=== PATIENT | female | born 1955 | race Caucasian/White ===

== ENCOUNTER 2020-05-15 09:37 | Outpatient (CLI) | payer MEDICARE, OTHER, SELFPAY ==
--- NOTE | 2020-05-15 09:45 | EST_ITS ---
Patient Info Name: Tamy Lockhart Age: 64 years : 1955 Gender: Female Ht: 62 in Wt: 120 lbs BSA: 1.55 m2 Exam Date: 05/15/2020 9:55 AM Exam Location: [facility] Stress Patient Status: Outpatient Admit Date: 05/15/2020 Staff Ordering Physician: Marito Johnson DO Attending Provider: DAVID CONKLIN DO Exercise Technologist: Caprice Pratt RDCS Exercise Physician: David Conklin DO Exam Type: CA stress test treadmill Study Info A treadmill exercise stress test was performed. Summary 1. 1. Negative Sami exercise stress test for ischemic ST changes by ECG criteria. 2. 2. Good functional capacity, achieving 8.9 METs of workload. 3. 3. Baseline hypertension. 4. 4. Appropriate HR response to exercise. 5. 5. Appropriate HR recovery at 1 minute post exercise. 6. 6. No imaging with stress testing. 7. 7. Patient informed of the above results. Protocol: Sami Stress ECG Details Stage: REST Duration (min): 6 min : 23 sec Speed (mph): 0.0 Grade (%): 0 HR (bpm): 94 SBP (mmHg): 155 DBP (mmHg): 81 METS: --- Stage: REST Duration (min): 10 min : 56 sec Speed (mph): 0.0 Grade (%): 0 HR (bpm): 103 SBP (mmHg): 155 DBP (mmHg): 81 METS: --- Stage: STAGE 1 Duration (min): 1 min : 0 sec Speed (mph): 1.7 Grade (%): 10 HR (bpm): 126 SBP (mmHg): 155 DBP (mmHg): 81 METS: --- Stage: STAGE 1 Duration (min): 2 min : 0 sec Speed (mph): 1.7 Grade (%): 10 HR (bpm): 127 SBP (mmHg): 155 DBP (mmHg): 81 METS: --- Stage: STAGE 1 Duration (min): 3 min : 0 sec Speed (mph): 1.7 Grade (%): 10 HR (bpm): 131 SBP (mmHg): 184 DBP (mmHg): 85 METS: --- Stage: STAGE 2 Duration (min): 1 min : 0 sec Speed (mph): 2.5 Grade (%): 12 HR (bpm): 144 SBP (mmHg): 184 DBP (mmHg): 85 METS: --- Stage: STAGE 2 Duration (min): 2 min : 0 sec Speed (mph): 2.5 Grade (%): 12 HR (bpm): 142 SBP (mmHg): 186 DBP (mmHg): 83 METS: --- Stage: STAGE 2 Duration (min): 3 min : 0 sec Speed (mph): 2.5 Grade (%): 12 HR (bpm): 148 SBP (mmHg): 186 DBP (mmHg): 83 METS: --- Stage: STAGE 3 Duration (min): 1 min : 0 sec Speed (mph): 3.4 Grade (%): 14 HR (bpm): 155 SBP (mmHg): 182 DBP (mmHg): 87 METS: --- Stage: STAGE 3 Duration (min): 1 min : 0 sec Speed (mph): 3.4 Grade (%): 14 HR (bpm): 155 SBP (mmHg): 182 DBP (mmHg): 87 METS: --- Stage: RECOVERY Duration (min): 0 min : 59 sec Speed (mph): 0.0 Grade (%): 0 HR (bpm): 138 SBP (mmHg): 184 DBP (mmHg): 77 METS: --- Stage: RECOVERY Duration (min): 1 min : 59 sec Speed (mph): 0.0 Grade (%): 0 HR (bpm): 125 SBP (mmHg): 184 DBP (mmHg): 77 METS: --- Stage: RECOVERY Duration (min): 2 min : 59 sec Speed (mph): 0.0 Grade
[2020-05-15 10:52] LABS: Basophils Percent Auto 0.5 % (0.2-1.2); Eosinophils Percent Auto 0.5 % (0-4.4); Hematocrit 42.9 % (37.0-47.0); Hemoglobin 14.3 g/dL (12.0-15.0); Immature Granulocyte Absolute 0.02 K/mm3 (0.00-0.031); Immature Granulocyte Percent A 0.3 % (0-0.5); Lymphocytes Absolute Auto 1.54 K/mm3 (0.9-3.2); Lymphocytes Percent Auto 23.5 % (18.3-44.2); Mean Corpuscular HGB Conc 33.3 g/dl (32-36); Mean Corpuscular Hemoglobin 29.9 pg (26-34); Mean Corpuscular Volume 89.6 fl (80-100); Mean Platelet Volume 10.7 fl (7.4-10.4); Monocytes Absolute Auto 0.4 K/mm3 (0.1-0.6); Monocytes Percent Auto 6.4 % (2.6-8.5); Neutrophils Absolute Auto 4.5 K/mm3 (1.3-6.7); Neutrophils Percent Auto 68.8 % (45.5-73.1); Platelet Count Result 254 k/mm3 (150-375); Red Blood Count 4.79 M/mm3 (4.2-5.4); White Blood Count 6.5 K/mm3 (4.5-10.0)
[2020-05-15 11:14] LABS: Alanine Aminotransferase 25 U/L (4-35); Albumin Level 4.6 g/dL (3.5-5.1); Alkaline Phosphatase 153 U/L (38-126); Anion Gap 9 mmol/L (8-16); Aspartate Amino Transferase 35 U/L (14-36); Bilirubin,Total 0.6 mg/dL (0.2-1.3); Blood Urea Nitrogen 12 mg/dL (7-17); Calcium 9.3 mg/dL (8.4-10.2); Carbon Dioxide 27 mmol/L (22-30); Chloride 102 mmol/L (98-107); Estimated Glomerular Filt Rate > 60; Glucose 125 mg/dL (65-105); Potassium 4.2 mmol/L (3.4-5.0); Sodium 138 mmol/L (137-145)
== END 2020-05-15 09:38 | disposition home or self-care (01) ==
PROVIDERS: PCP Internal Medicine; Visit Provider Internal Medicine
DX: R53.83 Other fatigue (principal); R07.89 Other chest pain
CPT/HCPCS: 36415; 80053; 84443; 85025; 93017

== ENCOUNTER → 2020-12-24 08:43 | Outpatient (CLI) | payer MEDICARE, OTHER, SELFPAY ==
--- NOTE | ~2020-12-24 | MR_ITS ---
EXAMINATION: MRA brain wo con DATE: 12/24/2020 09:42 INDICATION: Right-sided headache. Dizziness and giddiness. TECHNIQUE: Magnetic resonance angiography (MRA) of the brain was performed without intravenous contra st with T1-weighted SPGR by the 3D [id number] technique. Maximum intensity projection 3D-reconstr uctions were obtained. COMPARISON: None. FINDINGS: Left vertebral artery is dominant. There is no significant stenosis of basilar artery or the posterio r cerebral arteries. Right P1 posterior cerebral artery segment is small, a normal variant. The poste rior communicating arteries are normal. There is no significant stenosis of the intracranial internal carotid arteries or anterior or middle cerebral arteries. Anterior communicating artery is normal. T here is no aneurysm. IMPRESSION: 1. Normal MRA. Reviewed, dictated and finalized at location A. IMPRESSION: 1. Normal MRA.
--- NOTE | ~2020-12-24 | MR_ITS ---
EXAMINATION: MR brain/brain stem wo/w con DATE: 12/24/2020 09:45 INDICATION: Primary exertional headache. TECHNIQUE: Magnetic resonance imaging (MRI) of the brain and brainstem was performed without and with 10 mL MultiHance intravenous contrast. Sequences included sagittal and axial T1-weighted FSE, axial diffusion-weighted FS EPI, axial T2*-weighted GRE, axial T2-weighted FLAIR Propeller, and axial T2-we ighted Propeller. Postcontrast sequences included axial and coronal T1-weighted FSE. Apparent diffusi on coefficient (ADC) maps were created. COMPARISON: None. FINDINGS: There are scattered areas of nonspecific increased T2-weighted signal intensity in the cere bral white matter, which is within normal limits for the patient's age. There is no intracranial hemo rrhage, acute infarction, or abnormal intracranial mass lesion. The ventricles are normal in size. Th e paranasal sinuses are clear. The orbits are normal. The mastoid air cells are normal. IMPRESSION: 1. Normal brain. Reviewed, dictated and finalized at location A. IMPRESSION: 1. Normal brain.
[2020-12-24 09:18] LABS: Estimated Glomerular Filt Rate > 60
== END ==
PROVIDERS: PCP Internal Medicine; Visit Provider Internal Medicine
DX: G44.84 Primary exertional headache (principal); R42 Dizziness and giddiness
CPT/HCPCS: 70544; 70553; A9577

== ENCOUNTER 2021-06-03 08:46 | Emergency (ER) | payer MEDICARE, OTHER, SELFPAY ==
[2021-06-03] VITALS (22 sets, daily range): BP systolic 104–156; BP diastolic 67–75; PULSE 71–104; RESP 11–22; TEMP 36.3; O2SAT 96–100
--- NOTE | ~2021-06-03 | XR_ITS ---
EXAMINATION: XR chest 2V 06/03/2021 09:07 INDICATION: Left sided arm and chest PROCEDURE: 2 view chest COMPARISON: 02/14/2014 FINDINGS: The lungs are clear. The cardiomediastinal silhouette is within normal limits. There are no pleural effusions. There is no pneumothorax suspected. The lungs are hyperinflated which is cons istent with, but not diagnostic of chronic obstructive pulmonary disease. IMPRESSION: 1: NO ACUTE CARDIOPULMONARY DISEASE. Reviewed, dictated and finalized at location A.
--- NOTE | ~2021-06-03 | CT_ITS ---
EXAMINATION: CTA chest PE protocol DATE: 06/03/2021 11:18 INDICATION: Left chest pain. TECHNIQUE: Computed tomography angiography (CTA) of the chest was performed with 100 mL Omnipaque-350 intravenous contrast timed to evaluate the pulmonary arteries. Coronal maximum intensity projection 3D-reconstructions were created by the technologist. Automated exposure control and iterative reconst ruction technique were employed. The dose-length product was 172.07 mGy-cm. COMPARISON: Chest CT 02/14/2014 FINDINGS: There is mild scarring at the lung apices. There is minimal atelectasis bilaterally. No ple ural effusion. The heart size is normal. No pericardial effusion. There are cysts in the liver measur ing up to 13 mm. There is no pulmonary embolus. Thoracic aorta is normal in caliber. There is mild th oracic spondylosis. IMPRESSION: 1. No pulmonary embolus. Reviewed, dictated and finalized at location A. IMPRESSION: 1. No pulmonary embolus.
--- NOTE | 2021-06-03 08:56 | ECG_ITS ---
Measurements Intervals [place] Rate: 94 P: 66 ME: 144 QRS: 66 QRSD: 87 T: 64 QT: 356 QTc: 447 Interpretive Statements SINUS RHYTHM WITH SINUS ARRHYTHMIA BORDERLINE ST ABNORMALITY- INF/LAT LEADS BASELINE WANDER- II, III BORDERLINE ECG Electronically Signed On 06-03-2021 9:20:51 CDT by David Hatfield D.O.
--- NOTE | 2021-06-03 09:00 | PC.NURSE ---
Pt to xray.
[2021-06-03] MEDS: ASPIRIN 81 MG CHEWABLE TABLET 324 MG PO (09:20)
[2021-06-03 09:21] LABS: Anion Gap 8 mmol/L (8-16); Blood Urea Nitrogen 9 mg/dL (7-17); Calcium 9.5 mg/dL (8.4-10.2); Carbon Dioxide 27 mmol/L (22-30); Chloride 104 mmol/L (98-107); Estimated CRCL calculation 62 ml/min; Estimated Glomerular Filt Rate > 60; Glucose 124 mg/dL (65-110); Potassium 3.8 mmol/L (3.4-5.0); Sodium 139 mmol/L (137-145)
[2021-06-03 09:23] LABS: INR 0.8; Prothrombin Time 11.5 Seconds (11.1-14.7)
[2021-06-03 09:24] LABS: Partial Thromboplastin Time 21.8 SECONDS (22.3-36.8)
[2021-06-03 09:25] LABS: Basophils Percent Auto 0.4 % (0.2-1.2); Eosinophils Absolute Auto 0.2 K/mm3 (0-0.3); Eosinophils Percent Auto 2.9 % (0-4.4); Hematocrit 43.7 % (37.0-47.0); Hemoglobin 14.7 g/dL (12.0-15.0); Immature Granulocyte Absolute 0.01 K/mm3 (0.00-0.031); Immature Granulocyte Percent A 0.1 % (0-0.5); Mean Corpuscular HGB Conc 33.6 g/dl (32-36); Mean Corpuscular Hemoglobin 33.1 pg (26-34); Mean Corpuscular Volume 98.4 fl (80-100); Mean Platelet Volume 11.3 fl (7.4-10.4); Monocytes Absolute Auto 0.7 K/mm3 (0.1-0.6); Neutrophils Absolute Auto 2.6 K/mm3 (1.3-6.7); Neutrophils Percent Auto 36.6 % (45.5-73.1); Platelet Count Result 240 k/mm3 (150-375); Red Blood Count 4.44 M/mm3 (4.2-5.4); Red Cell Distribution Width 12.6 % (11.5-14.5)
[2021-06-03 09:32] LABS: Troponin I < 0.012 ng/mL (0.000-0.034)
[2021-06-03] MEDS: MORPHINE SULFATE (*CRX) 2 MG/ML INJ IV PUSH (09:48)
[2021-06-03] MEDS: KETOROLAC 30 MG/ML VIAL (*BKC) IV PUSH (10:42)
[2021-06-03 12:28] LABS: Troponin I < 0.012 ng/mL (0.000-0.034)
--- NOTE | 2021-06-03 12:56 | ED.CHESTPAIN ---
HPI - Chest Pain General Chief Complaint: Chest Pain Stated Complaint: cp Time Seen by Provider: 06/03/21 08:55 Source: patient Mode of arrival: ambulatory Limitations: no limitations History of Present Illness HPI narrative: 66-year-old with no major medical problems here with complaints of left-sided shoulder pain radiating into her arm and into her neck started this morning. Patient states that she gets periodically similar kind of pain usually takes deep breaths and it resolves however this morning it is been persistent. She also states that pain gets worse with deep inspiration. She denies any cough or trauma or lifting heavy objects in the recent past. No previous history of coronary artery disease. complaint: other (left arm and shoulder pain) Onset (ago): hour(s) (6) Timing of current episode: constant Prior episodes: No Onset: during rest Pain location: other (left shoulder) Pain radiation: left arm and neck Severity: moderate Quality: aching Relieving factors: nothing Exacerbating factors: nothing Treatment prior to arrival: none Related Data Home Medications Medication Instructions Recorded Confirmed biotin 5,000 mcg sublingual tablet 5,000 mcg SUBLINGUAL DAILY 07/28/20 12/15/20 multivitamin 1 tablet PO DAILY 07/28/20 12/15/20 Allergies Allergy/AdvReac Type Severity Reaction Status Date / Time doxycycline Allergy Mild Hives Verified 05/12/20 07:37 egg Allergy Unknown Flushing Verified 05/12/20 07:37 meperidine Allergy Unknown Urticaria Verified 05/12/20 07:37 cefaclor [From Ceclor] Allergy Unknown Verified 06/03/21 08:55 Review of Systems Review of Systems: All systems reviewed & are unremarkable except as noted in HPI and below Constitutional: Constitutional: Reports no additional constitutional complaints Eyes: Eyes: Reports no additional eye complaints ENT: Reports system reviewed and no additional complaints, except as documented Cardiovascular: Cardiovascular: Reports as per HPI Respiratory: Respiratory: Reports no additional respiratory complaints Gastrointestinal: Gastrointestinal: Reports no additional gastrointestinal complaints Musculoskeletal: Musculoskeletal: Reports as per HPI Integumentary/Breasts: Skin/Breast: Reports system reviewed and no additional complaints, except as docu Neurologic: Reports system reviewed and no additional complaints, except as documented PMFSH Past Medical History Medical History Cataract Glaucoma Mitral valve prolapse Family History Family History Father Family history of cardiovascular disease Mother Carcinoma of colon Social History Social History Smoking status: Never smoker Alcohol intake: current Exam Narrative: GENERAL: Well-appearing, thin, and in no acute distress. HEAD: Normocephalic, atraumatic. EYES: PERRLA and EOMI.. NECK: Supple. CHEST: Clear to auscultation. No respiratory distress. HEART: Regular rate and rhythm. No murmur heard. Normal peripheral pulses. ABDOMEN: Soft, nontender, nondistended, normal active bowel sounds. EXTREMITIES: Normal range of motion. No edema. Nontender on palpation SKIN: Warm, dry, no rash. NEURO: No focal deficits. Alert and oriented x3. PSYCH: Normal mood and affect. Course Course Emergency Course: Patient was given morphine 4 mg IV for pain which helped very minimally she still continues to have pain I have given her 30 mg of Toradol which eased the pain. I discussed her lab work, CTA findings. She feels much relief with Toradol her pain appears to be more musculoskeletal rather than cardiac or pulmonary at this time. Advised her to take pain medications as prescribed. Follow-up with her primary doctor. She does feel comfortable going home. Vital Signs Vital signs: Vital Signs Temperature 36.3 C L 06/03/21 08:51
== END 2021-06-03 13:30 | disposition home or self-care (01) ==
PROVIDERS: Emergency Provider Family Medicine; PCP Internal Medicine
DX: M25.512 Pain in left shoulder (principal); R07.89 Other chest pain; I34.1 Nonrheumatic mitral (valve) prolapse; H40.9 Unspecified glaucoma; H26.9 Unspecified cataract; R94.31 Abnormal electrocardiogram [ECG] [EKG]
CPT/HCPCS: 36415; 71046; 71275; 80048; 84484; 85025; 85610; 85730; 93005; 96374; 96375; 99284; A9270; J1885; J2270; Q9967

== ENCOUNTER → 2022-10-17 12:05 | Outpatient (CLI) | payer MEDICARE, OTHER, SELFPAY ==
--- NOTE | ~2022-10-17 | MM_ITS ---
EXAMINATION: MM screening caitlyn BI w riaz HISTORY: Screening mammogram TECHNIQUE: Craniocaudal and mediolateral oblique 3-D tomosynthesis images were obtained and synthetic 2-D images were generated. Bilateral rotated lateral CC views. CAD analysis was submitted and interp reted. COMPARISON: 02/11/2014 bilateral screening mammogram BREAST PARENCHYMAL COMPOSITION: There are scattered areas of fibroglandular density. FINDINGS: There is no evidence of suspicious mass, calcification, or architectural distortion to sugg est malignancy in either breast. There has been no suspicious interval change. IMPRESSION: 1. No mammographic evidence of malignancy. 2. Recommend routine screening mammography in one year. BI-RADS Category 1: Negative Reviewed, dictated and finalized at location A. SYSTEMS ENGINEER
--- NOTE | ~2022-10-17 | DEXA_ITS ---
Bone Density Report Name: PAUL DE LA CRUZ Age: 67 Sex: Female Ethnicity: White Date of : 1955 Indication: osteopenia; postmenopausal Referring Provider: Sintia Álvarez Study: Bone densitometry was performed. Exam Date: October 17, 2022 Accession number: [id number] Bone Density: Region BMD T-score Z-score Classification AP Spine (L1-L4) 0.836 -1.9 0.0 Osteopenia Femoral Neck (Left) 0.621 -2.1 -0.4 Osteopenia Total Hip (Left) 0.833 -0.9 0.5 Normal Femoral Neck (Right) 0.649 -1.8 -0.2 Osteopenia Total Hip (Right) 0.830 -0.9 0.4 Normal Total Hip Mean 0.832 -0.9 0.5 Normal World Health Organization criteria for BMD impression classify patients as: Normal (T-score at or above -1.0), Osteopenia (T-score between -1.0 and -2.5), or Osteoporosis (T-score at or below -2.5). 10-year Fracture Risk(1): Major Osteoporotic Fracture 11% Hip Fracture 1.9% Reported Risk Factors: [place] (), Neck BMD=0.621, BMI=22.3 (1) FRAX(R) Version 3.08. Fracture probability calculated for an untreated patient. Fracture probability may be lower if the patient has received treatment. Previous Exams: Region Exam Age BMD T-score BMD Change BMD Change Date g/cm2 vs Baseline vs Previous AP Spine(L1-L4) 10/17/2022 67 0.836 -1.9 -0.018 -0.018 02/11/2014 58 0.854 -1.8 Total Hip(Left) 10/17/2022 67 0.833 -0.9 0.028* 0.028* 02/11/2014 58 0.805 -1.1 Total Hip(Right) 10/17/2022 67 0.830 -0.9 -0.012 -0.012 02/11/2014 58 0.842 -0.8 *Denotes significance at 95% confidence level, LSC for AP Spine = 0.022 g/cm2, LSC for Total Hip = 0.027 g/cm2 Clinical Information Provided by Patient: Has used the following medications: Vitamin D, MTV Patient maximum height was 62.0 Menopause Age: 56 Drinks caffeinated beverages Onset of menses at age 13 Number of children 3 Impression: The patient has low bone mass, based on the Left Femoral Neck T-score. The patient has an estimated ten-year risk of hip fracture of 1.9% and an estimated ten-year risk of major fracture of 11%, based on the WHO FRAX algorithm. No significant bone loss was observed. Discussion: BONE DENSITY IS LOW AT ONE OR MORE SKELETAL SITES. This patient's lowest T-score is low at one or more skeletal sites. It meets the World Health Organization's (WHO) criteria for ?low bone mass? (T-score between -1.0 and -2.5). The wes
== END ==
PROVIDERS: PCP Clinical Nurse Specialist; Visit Provider Clinical Nurse Specialist
DX: Z12.31 Encounter for screening mammogram for malignant neoplasm of breast (principal); Z78.0 Asymptomatic menopausal state; M85.88 Other specified disorders of bone density and structure, other site; M85.852 Other specified disorders of bone density and structure, left thigh; M85.851 Other specified disorders of bone density and structure, right thigh
CPT/HCPCS: 77063; 77067; 77080

== ENCOUNTER 2023-09-28 14:02 | Outpatient (CLI) | payer MEDICARE, OTHER, SELFPAY ==
--- NOTE | ~2023-09-28 | XR_ITS ---
XR hip RT min 2V DATE: 09/28/2023 14:47 INDICATION: Right hip pain TECHNIQUE: AP and lateral views of right hip COMPARISON: None FINDINGS: The pubic symphysis and right sacroiliac joint are intact. No right hip fracture or disloca tion, avascular necrosis or bone destruction is detected. IMPRESSION: Negative right hip Reviewed, dictated and finalized at location L. ERCIAL DRIVER IMPRESSION: Negative right hip
== END 2023-09-28 14:03 ==
PROVIDERS: PCP Clinical Nurse Specialist; Visit Provider Clinical Nurse Specialist
DX: M25.551 Pain in right hip (principal)
CPT/HCPCS: 73502

== ENCOUNTER 2023-11-13 09:55 | Outpatient (CLI) | payer MEDICARE, OTHER, SELFPAY ==
--- NOTE | ~2023-11-13 | MM_ITS ---
EXAMINATION: MM screening caitlyn BI w riaz HISTORY: Screening mammogram TECHNIQUE: Craniocaudal and mediolateral oblique 3-D tomosynthesis images were obtained and synthetic 2-D images were generated. CAD analysis was submitted and interpreted. COMPARISON: October 17, 2022, February 11, 2014 bilateral screening mammogram examinations BREAST PARENCHYMAL COMPOSITION: There are scattered areas of fibroglandular density. FINDINGS: There is no evidence of suspicious mass, calcification, or architectural distortion to sugg est malignancy in either breast. There has been no suspicious interval change. IMPRESSION: 1. No mammographic evidence of malignancy. 2. Recommend routine screening mammography in one year. BI-RADS Category 1: Negative Reviewed, dictated and finalized at location A. MANAGER
== END 2023-11-13 09:56 ==
PROVIDERS: PCP Internal Medicine; Visit Provider Internal Medicine
DX: Z12.31 Encounter for screening mammogram for malignant neoplasm of breast (principal)
CPT/HCPCS: 77063; 77067

== ENCOUNTER 2023-11-29 12:31 | Outpatient (CLI) | payer MEDICARE, SELFPAY ==
--- NOTE | ~2023-11-29 | MR_ITS ---
MRI of the brain Clinical History: Amnesia Technique: Axial and sagittal T1-weighted images were acquired. These were followed by axial T2-weigh keith, diffusion weighted, gradient, and FLAIR images. Following intravenous administration of 10 cc Mu ltiHance gadolinium, T1-weighted fat-sat imaging was performed in the axial and coronal planes. Findings: No abnormal signal seen in the brain parenchyma. No acute infarct, internal hemorrhage, or mass lesion. Ventricles and subarachnoid spaces are unremarkable. Orbits are unremarkable. Right maxillary sinus d isease noted. Remaining paranasal sinuses and mastoid air cells are clear. Major intracranial flow vo ids are intact. Sagittal midline structures are intact. No abnormal postcontrast enhancement seen. IMPRESSION: Mild right maxillary sinus disease, otherwise unremarkable exam. Reviewed, dictated and finalized at [facility].
== END 2023-11-29 12:32 ==
LOC: MICIMG 12:32
PROVIDERS: PCP Clinical Nurse Specialist; Visit Provider Clinical Nurse Specialist
DX: R41.3 Other amnesia (principal); J32.0 Chronic maxillary sinusitis
CPT/HCPCS: 70553; A9577

== ENCOUNTER 2024-05-30 09:12 | Outpatient (CLI) | payer MEDICARE, SELFPAY ==
[2024-05-30 13:50] LABS: Anion Gap 3 mmol/L (4-12); Blood Urea Nitrogen 12 mg/dL (7-17); Calcium 9.1 mg/dL (8.4-10.2); Carbon Dioxide 35 mmol/L (22-30); Chloride 101 mmol/L (98-107); Estimated Glomerular Filt Rate > 60; Glucose 107 mg/dL (65-110); Potassium 4.3 mmol/L (3.4-5.0); Sodium 139 mmol/L (137-145)
== END 2024-05-30 09:13 | disposition home or self-care (01) ==
LOC: ANHGOSHLAB 09:14
PROVIDERS: PCP Clinical Nurse Specialist; Visit Provider Clinical Nurse Specialist
DX: I10 Essential (primary) hypertension (principal)
CPT/HCPCS: 36415; 80048

== ENCOUNTER 2025-03-24 11:15 | Emergency (ER) | payer MEDICARE, SELFPAY ==
--- OUTSIDE RECORDS SUMMARY | 2025-03-24 11:19 | XMS_ITS | Clinical Summary ---
Author Organization [facility] Address [address] [place] [id number] Care Team Providers Care Social Media Assistant Name Role Phone Marito Johnson DO Primary Care Provider +1- [phone] Allergies Active Allergy Reactions Criticality Noted Date Comments Doxycycline Meperidine Rash Reaction: Rash, Medications [id number] -Lmfolate-algal 27 mg iron-1.13 mg-581.92 mg capsule Take by mouth Active lisinopriL (PRINIVIL,ZESTR IL) 5 mg tablet 5 Active donepeziL (ARICEPT) 5 mg tabletIndicatio ns:Mild to Moderate Alzheimer's Type Dementia Take 1 tablet (5 mg total) by mouth daily Take this medication with food or within 30 minutes after a meal 30 tablet 5 Active Active Problems Problem Noted Date Diagnosed Date Chest pain 06/22/2021 Encounters Date Type Department Care Team Description 03/21/2025 Telephone [facility] [address] [facility] 6th [place] [address] [place] [address] Mary Lauren 03/18/2025 Results Follow-Up [address]th [place] [address] [place] [address] Cookie Valentine MD PET/CT Amyloid Brain 03/17/2025 1:08 PM CDT - 03/17/2025 11:59 PM CDT Hospital Encounter [facility]) [address] [place] [address] Discharge Disposition: Discharge to home or self care 03/17/2025 1:07 PM CDT - 03/17/2025 11:59 PM CDT Hospital Encounter [facility] ([facility]) [address] [place] [address] Other amnesia; Abnormal brain scan Discharge Disposition: Discharge to home or self care 02/05/2025 10:28 AM CDT - 02/05/2025 11:59 PM CDT Hospital Encounter [facility] ([facility]) [address] [place] [address] Discharge Disposition: Discharge to home or self care 02/05/2025 8:00 AM CDT Office Visit [facility] [address] [place] [address] [facility] 6th [place] [address] [place] [address] Cookie Valentine MD Abnormal brain scan (Primary Dx); Other amnesia 01/02/2025 Telephone [facility] Scheduling [address] [place] [address] Cookie Valentine MD Scheduling Appointments from Last 3 Months Surgical History Surgery Date Site/Laterality Comments TUBAL LIGATION tubal ligation OTHER SURGICAL HISTORY pylonidal cyst OTHER SURGICAL HISTORY neuroma CYST REMOVAL Medical History Medical History Date Comments Hx Other Medical abnl heartbeat; Comments: DWL 07/19/2016 - Hx Other Medical Headache, migra ine Chest pain Amnesia Liver cyst Ectopic Family History Medical History Relation Name Comments Memory loss Cousin Heart disease Father Cancer Mother Heart attack Mother Cancer Other 1 Family history of Cancer, unknown; Arthritis Other 2 Family history of Arthritis; Coronary artery disease Other 3 Fami ly history of Coronary artery disease; Hypertension Other 4 Family history of Hypertension; Relation Name Status Comments Cousin Alive Father (Age 74) Mother (Age 85) Other 1 Other 2 Other 3 Other 4 Social History Tobacco Use Types Packs/Day Years Used Date Smoking Tobacco: Never Smokeless Tobacco: Never Tobacco Cessation:Counseling Given: No Comments Unknown Sex and Gender Information Value Date Recorded Sex Assigned at Not on file 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 Gender Identity Not on file Sexual Orientation Not on file Obstetrics History Last Filed Vital Signs Vital Sign Reading Time Taken Comments Blood Pressure 150/75 02/05/2025 7:50 AM CDT Pulse 89 02/05/2025 7:50 AM CDT Temperature - - Respiratory Rate - - Oxygen Saturation 96% 06/22/2021 4:21 PM CDT Inhaled Oxygen Concentration - - Weight 44 kg (97 lb) 03/17/2025 2:49 PM CDT Height 154.9 cm (5' 1) 03/17/2025 2:49 PM CDT Body Mass Index 18.33 03/17/2025 2:49 PM CDT Plan of Treatment Health Maintenance Due Date Last Done Comments Breast Cancer Screening-Mammogram 1955 Colon Cancer Screening-Colonoscopy 1955 Depression Screening 1955 Fall Risk Assessment 1955 Hepatitis C Screening 1955 Osteoporosis Screening-Bone Density Scan 1955 DTaP/Tdap/Td Vaccine (1 - Tdap) 1966 Hepatitis B Screening 1973 Pneumococcal vaccine 65+ (1 of 1 - PCV) 2005 Zoster Vaccine (1 of 2) 2005 Well Visit 65+ 2020 Covid-19 Vaccine ( season) 05/12/202410/2020, 05/12/2021 Influenza Vaccine (#1) 2025 Procedures Procedure Name Priority Date/Time Associated Diagnosis Comments PET/CT AMYLOID BRAIN Schedule Routine, Read Routine (OP Routine) 03/17/2025 3:37 PM CDT Other amnesia Abnormal brain scan NEURO MR OUTSIDE REFERENCE Routine 02/05/2025 10:28 AM CDT from Last 3 Months Results * PET/CT Amyloid Brain (03/17/2025 3:37 PM CDT) Anatomical Region Laterality Modality Positron Emissio n Tomography (PET) 03/17/2025 3:53 PM CDT Impressions 03/17/2025 7:03 PM CDT 1. 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 2. Subcentimeter value: 60.06 General comments on amyloid-PET interpretation: A negative amyloid-PET study indicates sparse to no neuritic plaques and is inconsistent with Alzheimer disease at the time of the study. A negative study reduces the likelihood that the patient's cognitive impairment is due to Alzheimer disease. A positive amyloid-PET study indicates moderate to frequent neuritic plaques which is the amount present in patients with Alzheimer disease. However, a positive amyloid-PET study does not establish the diagnosis of Alzheimer disease. Moderate to frequent neuritic plaques can also be present in patients with other neurological conditions as well as in older people with normal cognition. Dictated by: Sim Fajardo MD The radiology attending physician has personally reviewed this study, and had reviewed and/or edited this written report and agrees with it. Electronically signed by: Vanessa Woodall M.D. Narrative 03/17/2025 7:03 PM CDT EXAMINATION: BRAIN AMYLOID-PET/CT IMAGING DATE OF STUDY: 03/17/2025 SCANNER: [employer] RADIOPHARMACEUTICAL: 11.56 mCi F-18 florbetapir i.v. HISTORY: A 69-year-old woman is undergoing evaluation for cognitive impairment, including short-term memory loss, and asking things repeatedly. TECHNIQUE: At 41 minutes after injection of tracer, non-contrast CT images of the head were obtained for attenuation correction and for fusion with emission PET images to allow for anatomical localization of PET findings. Standard emission PET imaging of the brain was then performed. The study was interpreted on the [facility] workstation. COMPARISON CT/MRI: MRI 11/29/2023 FINDINGS: There is a normal cortical-white matter contrast in the cerebellum. There is decreased cortical-white matter contrast involving both cerebral hemispheres, with cortical activity equally distributed in white matter involving the lateral temporal, posterior cingulate gyrus, precuneus, occipital, and superior parietal lobes. Centiloid value: 60.[address] findings: None. Procedure Note Vanessa Woodall MD - 03/17/2025 EXAMINATION: BRAIN AMYLOID-PET/CT IMAGING DATE OF STUDY: 03/17/2025 SCANNER: [email or web address] [facility] mCT RADIOPHARMACEUTICAL: 11.56 mCi F-18 florbetapir i.v. HISTORY: A 69-year-old woman is undergoing evaluation for cognitive impairment, including short-term memory loss, and asking things repeatedly. TECHNIQUE: At 41 minutes after injection of tracer, non-contrast CT images of the head were obtained for attenuation correction and for fusion with emission PET images to allow for anatomical localization of PET findings. Standard emission PET imaging of the brain was then performed. The study was interpreted on the [facility] workstation. COMPARISON CT/MRI: MRI 11/29/2023 FINDINGS: There is a normal cortical-white matter contrast in the cerebellum. There is decreased cortical-white matter contrast involving both cerebral hemispheres, with cortical activity equally distributed in white matter involving the lateral temporal, posterior cingulate gyrus, precuneus, occipital, and superior parietal lobes. Centiloid value: 60.[address] findings: None. IMPRESSION: 1. 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 2. Subcentimeter value: 60.06 General comments on amyloid-PET interpretation: A negative amyloid-PET study indicates sparse to no neuritic plaques and is inconsistent with Alzheimer disease at the time of the study. A negative study reduces the likelihood that the patient's cognitive impairment is due to Alzheimer disease. A positive amyloid-PET study indicates moderate to frequent neuritic plaques which is the amount present in patients with Alzheimer disease. However, a positive amyloid-PET study does not establish the diagnosis of Alzheimer disease. Moderate to frequent neuritic plaques can also be present in patients with other neurological conditions as well as in older people with normal cognition. Dictated by: Sim Fajardo MD The radiology attending physician has personally reviewed this study, and had reviewed and/or edited this written report and agrees with it. Electronically signed by: Vanessa Woodall M.D. Cookie Valentine MD IMG PET PROCEDURES Final Result * Neuro MR Outside Reference (02/05/2025 10:28 AM CDT) Impressions [facility] - 02/05/2025 10:28 AM CDT These images are for Reference purposes only and have not been reviewed by [facility]iology. There will be no report generated by a [facility] Radiologist. Narrative [facility] - 02/05/2025 10:28 AM CDT EXAMINATION: Images For Reference Purposes Only us Cookie Valentine MD IMG MRI PROCEDURES Final Result [facility] from Last 3 Months Insurance MEDICARE [facility] MEDICARE IBEW MEDICARE SUPP MEDICARE IBEW MEDICARE SUPP Care Teams Social Media Assistant Relationship Specialty Start Date End Date Marito Johnson DO PCP - General 02/04/17
--- OUTSIDE RECORDS SUMMARY | 2025-03-24 11:19 | XMS_ITS | Referral Summary ---
Author Organization [facility] [facility] [place] Address [address] [place] [phone] Care Team Providers Care Wrist Liner Name Role Phone Marito Johnson DO Primary Care Provider +1- [phone] Encounters Date Type Department Care Team Description 03/21/2025 Telephone [facility] [address] [facility] 6th [place] [address] [place] [address] Mary Lauren 03/18/2025 Results Follow-Up [facility] [address] [facility] 6th [place] [address] [place] [address] Cookie Valentine MD PET/CT Amyloid Brain 03/17/2025 1:08 PM CDT - 03/17/2025 11:59 PM CDT Hospital Encounter [facility] ([facility]) [address] [place] [phone] Discharge Disposition: Discharge to home or self care 03/17/2025 1:07 PM CDT - 03/17/2025 11:59 PM CDT Hospital Encounter [facility]) [address] [place] [address] Other amnesia; Abnormal brain scan Discharge Disposition: Discharge to home or self care 02/05/2025 10:28 AM CDT - 02/05/2025 11:59 PM CDT Hospital Encounter [facility]) [address] [place] [address] Discharge Disposition: Discharge to home or self care 02/05/2025 8:00 AM CDT Office Visit [facility] [address] [facility] 6th [place] [address] [place] [address] Cookie Valentine MD Abnormal brain scan (Primary Dx); Other amnesia 01/02/2025 Telephone [facility] Scheduling [address] [place] [address] Cookie Valentine MD Scheduling Appointments from Last 3 Months Allergies Active Allergy Reactions Criticality Noted Date Comments Doxycycline Meperidine Rash Reaction: Rash, Medications [id number] -Lmfolate-algal 27 mg iron-1.13 mg-581.92 mg capsule Take by mouth Active lisinopriL (PRINIVIL,ZESTR IL) 5 mg tablet Active donepeziL (ARICEPT) 5 mg tabletIndicatio ns:Mild to Moderate Alzheimer's Type Dementia Take 1 tablet (5 mg total) by mouth daily Take this medication with food or within 30 minutes after a meal 30 tablet 5 Active Active Problems Problem Noted Date Diagnosed Date Chest pain 06/22/2021 Social History Tobacco Use Types Packs/Day Years Used Date Smoking Tobacco: Never Smokeless Tobacco: Never Tobacco Cessation:Counseling Given: No Comments Unknown Sex and Gender Information Value Date Recorded Sex Assigned at Not on file 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 HISTORY: [...] performed. The study was interpreted on the [employer] workstation. COMPARISON CT/MRI: MRI 11/29/2023 FINDINGS: There [...] AMYLOID-PET/CT IMAGING DATE OF STUDY: 03/17/2025 SCANNER: [facility] RADIOPHARMACEUTICAL: 11.56 mCi F-18 florbetapir i.v. HISTORY: [...] performed. The study was interpreted on the [facility] workstation. COMPARISON CT/MRI: MRI 11/29/2023 FINDINGS: There [...] Outside Reference (02/05/2025 10:28 AM CDT) Impressions [facility] - 02/05/2025 10:28 AM CDT These images are for Reference purposes only and have not been reviewed by [facility]iology. There will be no report generated by a [facility] Radiologist. Narrative [facility] - 02/05/2025 10:28 AM CDT EXAMINATION: Images For Reference Purposes Only Cookie Valentine MD IMG MRI PROCEDURES Final Result [facility] from Last 3 Months Insurance MEDICARE COMMERCIAL GENERIC MEDICARE IBEW MEDICARE SUPP HEALTH AND [address] [id number] MEDICARE IBEW MEDICARE SUPP Care Teams Wrist Liner Relationship Specialty Start Date End Date Marito Johnson DO PCP - General 02/04/17
--- NOTE | 2025-03-24 11:21 | ED.FEMALEGU ---
HPI - Female Genitourinary General Chief complaint: Skin/Abscess/Foreign Body Stated complaint: uti Source: patient and RN notes reviewed Mode of arrival: ambulatory Limitations: no limitations History of Present Illness HPI Narrative: Patient is a 69-year-old female who presents to the [facility] with multiple complaints. Patient complains of dysuria and hematuria that she noted on Monday morning. Patient states she continued to burning with urination throughout the day and again this morning. She has noted a very small amount blood in her urine on Monday and then again this morning. She denies any pelvic or flank pain. Denies history of kidney stones. Denies recent fevers. Related Data Allergies Allergy/AdvReac Type Severity Reaction Status Date / Time doxycycline Allergy Mild Hives Verified 11/28/24 08:37 egg Allergy Unknown Flushing Verified 11/28/24 08:37 meperidine Allergy Unknown Urticaria Verified 11/28/24 08:37 cefaclor (From Ceclor) Allergy Unknown Verified 11/28/24 08:37 cortisone Allergy Severe Swelling Uncoded 11/28/24 08:37 fibromyacin Allergy Severe Hives Uncoded 11/28/24 08:37 Review of Systems Review of Systems: CONSTITUTIONAL: Denies fever, chills, or sweats. EYES: Denies visual changes, redness, or discharge. ENT: Denies otalgia and sore throat CARDIOVASCULAR: Denies chest pain, palpitations, or edema. RESPIRATORY: Denies cough or dyspnea. GASTROINTESTINAL: Denies abdominal pain, nausea, vomiting, or diarrhea. GENITOURINARY: Reports dysuria and hematuria. SKIN: Denies rash or itching. MUSCULOSKELETAL: Denies back pain, joint pain, or myalgia. NEUROLOGIC: Denies headache, numbness, or weakness. Pertinent positives per HPI. FOR[facility]LY [facility], [facility] Past Medical History Medical History Mitral valve prolapse Glaucoma Cataract Family History Family History Father Family history of cardiovascular disease Mother Carcinoma of colon Social History Social History Smoking status: Never smoker Alcohol intake: never Do You Feel Safe in your Home?: Yes Lack of Transportation: No Lack of Food: Never True Current Housing: I Have Housing Concerned About Future Housing: No Difficulty Paying Gas/Electric Bills: No Difficulty Paying for Meds: No Currently Unemployed: No Education: High School Diploma/GED Difficulty w/ Childcare or Family Care: No Comments At the time of my signature, I reviewed and agree with the nursing past medical, surgical, social, and family history. There is no relevant family history pertinent to the patient complaint. Exam Narrative: GENERAL: This is a well-nourished, well-developed patient, in no apparent distress. HEAD: normocephalic, atraumatic. EYES: Sclera clear/white. Vision is grossly intact. EARS: External ears normal. Hearing grossly intact. NOSE: External nose normal with no obvious nasal discharge, nares without redness, no rhinorrhea. THROAT: Mucous membranes moist, posterior pharynx clear. NECK: Neck supple, non-tender without lymphadenopathy, masses or thyromegaly. CARDIOVASCULAR: Regular rate and rhythm without murmurs, gallops, or rubs. RESPIRATORY: Clear to auscultation. Breath sounds equal bilaterally. No wheezes, rales, or rhonchi. GASTROINTESTINAL: Abdomen soft, non-tender, nondistended. Bowel sounds are active. No hepato-splenomegaly, or palpable masses. No guarding. SKIN: warm, intact with no suspicious lesions or rash, good texture and turgor. NEURO: awake, alert, and oriented to person, place and time. There were no obvious focal neurologic abnormalities. EXTREMITIES: No clubbing, cyanosis, or edema. No joint tenderness, effusion, or edema noted. BACK: Nontender without deformity or crepitance. No flank tenderness. Course Course Level of Care: Express Care Visit Vital Signs Vital signs: Vital Signs Temperature 97.6 F 03/24/25 11: Pulse Rate 92 03/24/25 11:25 Respiratory Rate 18 03/24/25 11:25 Blood Pressure 137/65 03/24/25 11: Pulse Oximetry 100 03/24/25 11:25 Oxygen Delivery Room Air 03/24/25 11: Temperature 97.6 F 03/24/25 11:25 Pulse Rate 92 03/24/25 11:25 Respiratory Rate 18 03/24/25 11:25 Blood Pressure 137/65 07/14/25 11:25 Pulse Oximetry 100 03/24/25 11:25 Oxygen Delivery Room Air 03/24/25 11:25 Reviewed MDM - Female Genitourinary MDM Narrative Medical decision making narrative: We will send a urine culture off to the lab; if the culture identifies an organism that the prescribed antibiotic will not treat, you will receive a phone call from an urgent care staff member and an appropriate antibiotic will be prescribed. -Your symptoms should begin to improve within a day of starting antibiotics. But you should finish all the antibiotic pills you get. Otherwise your infection might come back. -Also recommend: drink more fluid. It might help flush out germs, and it does no harm -Tylenol/ibuprofen as needed for pain -Follow-up with your primary care provider for urine recheck OR if your symptoms persist, change or worsen significantly before you can contact your personal physician then please, without delay, go to the emergency department for further evaluation. Differential Diagnosis Differential diagnosis: Likely urinary tract infection, vaginitis and cystitis Lab Data Attestation: I reviewed the patient's lab results. Critical Care Time Critical Care Time Critical Care Time: No Discharge Plan Discharge Clinical Impression: Acute cystitis with hematuria, Sting, wasp Patient Disposition: Home Condition: Stable Instructions: Antibiotic Form, Urinary Tract Infection in Women (ED) Additional Instructions: We will send a urine culture off to the lab; if the culture identifies an organism that the prescribed antibiotic will not treat, you will receive a phone call from an urgent care staff member and an appropriate antibiotic will be prescribed. -Your symptoms should begin to improve within a day of starting antibiotics. But you should finish all the antibiotic pills you get. Otherwise your infection might come back. -Also recommend: drink more fluid. It might help flush out germs, and it does no harm -Tylenol/ibuprofen as needed for pain -Follow-up with your primary care provider for urine recheck OR if your symptoms persist, change or worsen significantly before you can contact your personal physician then please, without delay, go to the emergency department for further evaluation. Patient Language: Kazakh Prescriptions: New nitrofurantoin monohyd/m-cryst 100 mg capsule 100 mg PO Q12H 7 Days Qty: 14 0RF Rx Instructions: must administer with a meal/food No Action lisinopril 2.5 mg tablet 2.5 mg PO DAILY Qty: 90 0RF Follow-up/Referrals: Marito Johnson DO [Primary Care Provider] - Time of Disposition: 11:39
[2025-03-24 11:25] VITALS: BP 137/65; PULSE 92; RESP 18; TEMP 36.4; O2SAT 100
[2025-03-24 11:39] LABS: EDUAAPPEAR Cloudy; EDUABILI Negative (Negative); EDUABLOOD 2+ (Negative); EDUACOLOR1 Tea Colored; EDUAGLUCOSE Negative (Negative); EDUAKETONE Negative (Negative); EDUALEUKO 1+ (Negative); EDUANITRATE Negative (Negative); EDUAPH 5.5; EDUAPROTEIN Trace (Negative); EDUASPGRAVITY 1.030; EDUAUROBILI 0.2
== END 2025-03-24 11:41 | disposition home or self-care (01) ==
PROVIDERS: Emergency Provider Nurse Practitioner; PCP Internal Medicine
DX: N30.01 Acute cystitis with hematuria (principal); T63.461A Toxic effect of venom of wasps, accidental (unintentional), initial encounter; I34.1 Nonrheumatic mitral (valve) prolapse; H40.9 Unspecified glaucoma
CPT/HCPCS: 81003; 87086; 99213; G0463

== ENCOUNTER 2025-04-04 12:09 | Emergency (ER) | payer MEDICARE, SELFPAY ==
--- OUTSIDE RECORDS SUMMARY | 2025-04-04 12:12 | XMS_ITS | Clinical Summary ---
Author Organization [address] Address [address] [place] [id number] Care Team Providers Care Plaster Foreman Name Role Phone Marito Johnson DO Primary Care Provider +1- [phone] Allergies Active Allergy Reactions Criticality Noted Date Comments Doxycycline Meperidine Rash Reaction: Rash, Medications [id number] -Lmfolate-algal 27 mg iron-1.13 mg-581.92 mg capsule [...] Encounters Date Type Department Care Team Description 03/26/2025 Telephone [facility] Scheduling [address] [place] [address] Marito Johnson DO 03/24/2025 Telephone [facility] [address] [facility] 6th [place] [address] [place] [address] Cookie Valentine MD 03/21/2025 Telephone [facility] [address] [facility] 6th [place] [address] [place] [id number] Mary Lauren 03/18/2025 Results Follow-Up [facility] [address] [facility] 6th [place] [address] [place] [address] Cookie Valentine MD PET/CT Amyloid Brain 03/17/2025 1:08 PM CDT - 03/17/2025 11:59 PM CDT Hospital Encounter [facility] ([facility]) [address] [place] [id number] Discharge Disposition: Discharge to home or self care 03/17/2025 1:07 PM CDT - 03/17/2025 11:59 PM CDT Hospital Encounter [facility] ([facility]) [address] [place] [phone] Other amnesia; Abnormal brain scan Discharge Disposition: Discharge to home or self care 02/05/2025 10:28 AM CDT - 02/05/2025 11:59 PM CDT Hospital Encounter [facility] ([facility]) [address] [place] [id number] Discharge Disposition: Discharge to home or self care 02/05/2025 8:00 AM CDT Office Visit [facility] [address] [facility] 6th [place] [address] Cookie Valentine MD Abnormal brain scan (Primary Dx); Other amnesia from Last 3 Months Surgical History Surgery [...] on file 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 [...] performed. The study was interpreted on the [facility] workstation. COMPARISON CT/MRI: MRI 11/29/2023 [...] AMYLOID-PET/CT IMAGING DATE OF STUDY: 03/17/2025 SCANNER: [facility] RADIOPHARMACEUTICAL: 11.56 mCi F-18 florbetapir i.v. [...] performed. The study was interpreted on the [facility] workstation. COMPARISON CT/MRI: MRI 11/29/2023 [...] it. Electronically signed by: Vanessa Woodall M.D. us Cookie Valentine MD IM PET PROCEDURES Final Result * Neuro MR Outside Reference (02/05/2025 10:28 AM CDT) Impressions [facility] - 02/05/2025 10:28 AM CDT These images are for Reference purposes only and have not been reviewed by [facility]. There will be no report generated by a [facility] Radiologist. Narrative [facility] - 02/05/2025 10:28 AM CDT EXAMINATION: Images For Reference Purposes Only us Cookie Valentine MD IMG MRI PROCEDURES Final Result [facility] from Last 3 Months Insurance MEDICARE [facility] MEDICARE IBEW MEDICARE SUPP MEDICARE [employer] MEDICARE SUPP Care Teams Plaster Foreman Relationship Specialty Start Date End Date Marito Johnson DO PCP - General 02/04/17
--- OUTSIDE RECORDS SUMMARY | 2025-04-04 12:12 | XMS_ITS | Referral Summary ---
Author Organization [address] [facility] [place] Address [address] [place] [phone] Care Team Providers Care Network Engineer Name Role Phone Marito Johnson DO Primary Care Provider [phone]- [phone] Encounters Date Type Department Care Team Description 03/26/2025 Telephone [facility] Scheduling [address] [place] [address] Marito Johnson DO 03/24/2025 Telephone [facility] [address] [facility] 6th [place] [address] [place] [address] Cookie Valentine MD 03/21/2025 Telephone [facility] [address] [facility] 6th [place] [address] Mary Lauren 03/18/2025 Results Follow-Up [facility] [place] [id number] [facility] 6th [place] [address] Cookie Valentine MD PET/CT Amyloid Brain 03/17/2025 1:08 PM CDT - 03/17/2025 11:59 PM CDT Hospital Encounter [facility] ([facility]) [facility] [place] [address] Discharge Disposition: Discharge to home or self care 03/17/2025 1:07 PM CDT - 03/17/2025 11:59 PM CDT Hospital Encounter [facility] ([facility]) [address] [place] [address] Other amnesia; Abnormal brain scan Discharge Disposition: Discharge to home or self care 02/05/2025 10:28 AM CDT - 02/05/2025 11:59 PM CDT Hospital Encounter [facility] ([facility]) [address] [place] [address] Discharge Disposition: Discharge to home or self care 02/05/2025 8:00 AM CDT Office Visit [facility] [address] [facility] 6th [place] [address] [place] [address] Cookie Valentine MD Abnormal brain scan (Primary Dx); Other amnesia from Last 3 Months Allergies Active Allergy Reactions Criticality Noted Date Comments Doxycycline Meperidine Rash Reaction: Rash, Medications [id number] -Lmfolate-algal 27 mg iron-1.13 mg-581.92 mg capsule [...] on file 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 HISTORY: [...] performed. The study was interpreted on the [facility] workstation. COMPARISON CT/MRI: MRI 11/29/2023 FINDINGS: There [...] AMYLOID-PET/CT IMAGING DATE OF STUDY: 03/17/2025 SCANNER: Health system RADIOPHARMACEUTICAL: 11.56 mCi F-18 florbetapir i.v. HISTORY: [...] performed. The study was interpreted on the [facility] workstation. COMPARISON CT/MRI: MRI 11/29/2023 FINDINGS: There [...] only and have not been reviewed by [facility]. There will be no report generated by a [facility] Radiologist. Narrative [facility] - 02/05/2025 10:28 AM CDT EXAMINATION: Images For Reference Purposes Only Cookie Valentine MD IMG MRI PROCEDURES Final Result [facility] from Last 3 Months Insurance MEDICARE COMMERCIAL GENERIC MEDICARE IBEW MEDICARE SUPP MEDICARE IBE[employer] MEDICARE SUPP Care Teams Network Engineer Relationship Specialty Start Date End Date Marito Johnson DO PCP - General 02/04/17
[2025-04-04 12:20] VITALS: BP 151/71; PULSE 92; RESP 16; TEMP 37.1; O2SAT 100
[2025-04-04 12:32] LABS: EDUAAPPEAR Clear; EDUABILI Negative (Negative); EDUABLOOD Trace (Negative); EDUACOLOR1 Yellow; EDUAGLUCOSE Negative (Negative); EDUAKETONE Negative (Negative); EDUALEUKO Negative (Negative); EDUANITRATE Negative (Negative); EDUAPH 6.0; EDUAPROTEIN Negative (Negative); EDUASPGRAVITY 1.020; EDUAUROBILI 0.2
--- NOTE | 2025-04-04 12:44 | ED_ITS ---
HPI - Female Genitourinary General Chief complaint: Urogenital-Female Stated complaint: uti symptoms Time Seen by Provider: 04/04/25 12:30 Source: patient and RN notes reviewed Mode of arrival: ambulatory Limitations: no limitations History of Present Illness HPI Narrative: 69-year-old female presents Express Care complaining of urinary symptoms for 2-3 days. Patient reports having increased frequency and suprapubic pressure. Patient denies any fevers, dysuria, hesitancy, abdominal pain, body aches, chills, nausea, vomiting, diarrhea, or blood in her urine. Patient has not taken anything [id number] for symptoms. Patient denies any significant past medical history. Patient was recently here earlier this month that was treated for urinary tract infection with Macrobid. Patient had a urinary cult ure obtained that showed urogenital torri. Related Data Allergies Allergy/AdvReac Type Severity Reaction Status Date / Time cortisone Allergy Mild Swelling Verified 04/04/25 12:11 doxycycline Allergy Mild Hives Verified 04/04/25 12:11 egg Allergy Unknown Flushing Verified 04/04/25 12:11 meperidine Allergy Unknown Urticaria Verified 04/04/25 12:11 cefaclor (From Ceclor) Allergy Unknown Verified 04/04/25 12:11 Review of Systems Review of Systems: CONSTITUTIONAL: Denies fever, chills, body aches, or sweats. EYES: Denies visual changes, redness, or discharge. ENT: Denies rhinorrhea, congestion, sore throat, or otalgia. CARDIOVASCULAR: Denies chest pain, palpitations, or edema. RESPIRATORY: Denies cough or dyspnea. GASTROINTESTINAL: Denies abdominal pain, nausea, vomiting, or diarrhea. GENITOURINARY: Negative for dysuria, hematuria, and hesitancy.. Positive for increased frequency and suprapubic pressure. SKIN: Denies rash or itching. MUSCULOSKELETAL: Denies back pain, joint pain, or myalgia. NEUROLOGIC: Denies headache, numbness, or weakness. PSYCHIATRIC: Denies anxiety or depression. All other systems reviewed are negative, except as documented in HPI. [facility], [facility] Past Medical History Medical History Mitral valve prolapse Glaucoma Cataract Family History Family History Father Family history of cardiovascular disease Mother Carcinoma of colon Social History Social History Smoking status: Never smoker Alcohol intake: never Do You Feel Safe in your Home?: Yes Lack of Transportation: No Lack of Food: Never True Current Housing: I Have Housing Concerned About Future Housing: No Difficulty Paying Gas/Electric Bills: No Difficulty Paying for Meds: No Currently Unemployed: No Education: High School Diploma/GED Difficulty w/ Childcare or Family Care: No Comments At the time of my signature, I reviewed and agree with the nursing past medical, surgical, social, and family history. There is no relevant family history pertinent to the patient complaint. Exam Narrative: GENERAL: This is a well-nourished, well-developed adult, in no apparent distress. They are non ill-appearing, nontoxic appearing. HEAD: normocephalic, atraumatic. EYES: Sclera clear/white. Vision is grossly intact. Conjunctiva normal bilaterally. Extraocular movements intact. EARS: External ears normal,Hearing grossly intact. NOSE: External nose normal THROAT: Mucous membranes moist NECK: Normal range of motion CARDIOVASCULAR: Regular rate and rhythm. Normal S1-S2. No clicks, gallops, rubs, murmurs. RESPIRATORY: Respiratory rate normal, respiratory effort nonlabored, no respiratory distress. Lung sounds clear to auscultation throughout. Lung sounds equal bilaterally. No adventitious lung sounds. GASTROINTESTINAL: Abdomen soft, flat, mild suprapubic tenderness to palpation, nondistended. Bowel sounds are active. No hepato-splenomegaly, or palpable masses. No guarding or rigidity. No rebound tenderness. SKIN: warm, Dry, intact with no suspicious lesions or rash, good texture and turgor. NEURO: awake, alert, and oriented to person, place and time. There were no obvious focal neurologic abnormalities. EXTREMITIES: No joint tenderness, effusion, or edema noted. BACK: Nontender without deformity. No CVA tenderness. Course Course Emergency Course: Portions of this record may have been created with voice recognition software Level of Care: Express Care Visit Vital Signs Vital signs: Vital Signs Temperature 98.8 F 04/04/25 12:20 Pulse Rate 92 04/04/25 12:20 Respiratory Rate 16 04/04/25 12:20 Blood Pressure 151/71 H 04/04/25 12:20 Pulse Oximetry 100 04/04/25 12:20 Oxygen Delivery Room Air 04/04/25 12:20 Temperature 98.8 F 04/04/25 12:20 Pulse Rate 92 04/04/25 12:20 Respiratory Rate 16 04/04/25 12:20 Blood Pressure 151/71 H 04/04/25 12:20 Pulse Oximetry 100 04/04/25 12:20 Oxygen Delivery Room Air 04/04/25 12:20 MDM - Female Genitourinary MDM Narrative Medical decision making narrative: Urine dipstick shows trace blood. Urine culture pending. Patient has no dysuria however reports suprapubic pressure and increased frequency. Symptoms not fully consistent with urinary tract infection. Patient was recently treated with Macrobid and a previous urine cultures obtained showed urogenital torri which could indicate the sample was contaminated. Through shared decision making with patient we discussed starting treatment now prior to urine culture result or waiting for urine culture result. Patient elected she would like to wait for urine culture result prior to repeating antibiotic therapy. Advised patient if symptoms start to get worse prior to culture results she needs to follow-up with PCP, return to Urgent Care, or go to the ER especially if she developed severe abdominal pains, fevers, nausea, vomiting, weakness, or any serious concerns. Discussed physical exam findings. Advised supportive measures and signs/symptoms to go to the ER. Pt is appropriate for outpt treatment and f/u. Differential Diagnosis Differential diagnosis: Likely urinary tract infection, cystitis and other (Pyelonephritis, urinary frequency) Lab Data Attestation: I reviewed the patient's lab results. Labs: Lab Results 04/04/25 Range/Units 12:27 POC Urine Color Yellow POC Urine Clarity Clear POC Urine pH 6.0 POC Ur Specif [place] 1.020 POC Urine Protein Negative (Negative) POC Ur Glucose (UA) Negative (Negative) POC Urine Ketones Negative (Negative) POC Urine Blood Trace (Negative) POC Urine Nitrite Negative (Negative) POC Urine Bilirubin Negative (Negative) POC Urine Urobilinogen 0.2 POC U Leukocyte Esteras Negative (Negative) Discharge Plan Discharge Clinical Impression: Urinary frequency Patient Disposition: Home Condition: Stable Instructions: Urinary Urgency and Frequency (DC) Additional Instructions: Your urine will be sent of for a culture to determine if bacteria is causing your symptoms. If the culture shows a UTI, you will be notified and an antibiotic will be called in for you. Drink plenty of fluids. you will need to follow up with your PCP 3-5 days. Go to the ER for any worsening symptoms, abdominal pain, fevers, nausea, vo miting, or any other concerns Patient Language: Armenian Prescriptions: No Action lisinopril 2.5 mg tablet 2.5 mg PO DAILY Qty: 90 0RF Follow-up/Referrals: Marito Johnson DO [Primary Care Provider] - Time of Disposition: 12:42
== END 2025-04-04 12:43 | disposition home or self-care (01) ==
PROVIDERS: PCP Internal Medicine
DX: R35.0 Frequency of micturition (principal); I35.1 Nonrheumatic aortic (valve) insufficiency; H40.9 Unspecified glaucoma
CPT/HCPCS: 81003; 87086; 99213; G0463